=== PATIENT | female | born 1935 | race Two or more races ===

== ENCOUNTER 2020-02-17 17:53 | Inpatient (IN) | payer MEDICARE, MEDICAID ==
[~2020-02-17] VITALS: Ht 162.6 cm; Wt 91.8 kg
[2020-02-17] MEDS ORDERED: NITROGLYCERIN 0.4 MG SL TAB SL PRN (20:00)
[2020-02-17 21:05] LABS: Basophils # (auto) 0.2 10 ^3/uL (0-0.2); Eosinophils # (auto) 0.2 10 ^3/uL (0-0.8); Eosinophils % (auto) 1.1 % (0.0-7.0); Hematocrit 41.4 % (36.0-46.0); Hemoglobin 13.8 g/dL (12.2-16.2); Lymphocytes % (auto) 23.5 % (10.0-50.0); Mean Corpuscular Hemoglobin 30.5 pg (28.0-32.0); Mean Corpuscular Hgb Conc. 33.3 g/dL (32.0-36.0); Mean Corpuscular Volume 91.6 fL (80.0-100.0); Monocytes # (auto) 1.4 10 ^3/uL (0-1.3); Monocytes % (auto) 8.3 % (0.0-12.0); Neutrophils # (auto) 11.3 10 ^3/uL (1.6-8.6); Neutrophils % (auto) 66.1 % (37.0-80.0); Platelet Count (auto) 366 10^3/uL (140-450); Red Blood Cells 4.52 10^6/uL (4.0-5.20); Red Cell Distribution Width 16.1 % (11.8-14.3); White Blood Cell 17.1 10^3/uL (4.4-10.8)
[2020-02-17 21:22] LABS: Albumin 2.8 g/dL (3.4-5.0); Calcium 10.1 mg/dL (8.5-10.1); Potassium 3.6 mmol/L (3.5-5.1)
[2020-02-17 21:24] LABS: INR 1.02 (0.9-1.15); Partial Thromboplastin Time 24.6 sec (23.64-32.05)
[2020-02-17 21:26] LABS: BUN/Creatinine Ratio 30.3; Bilirubin, Total 0.5 mg/dL (0.2-1.0); Total Protein 8.4 g/dL (6.4-8.2)
[2020-02-18] MEDS ORDERED: NITROGLYCERIN 0.4 MG SL TAB SL PRN (07:15)
[2020-02-18] MEDS ORDERED: MILK OF MAGNESIA 30ML SUSP PO PRN (07:15)
[2020-02-18] MEDS ORDERED: HYDROcodone-ACET 5/325MG TAB PO PRN (07:15)
[2020-02-18] MEDS ORDERED: BISACODYL 10 MG RECT SUPP PR PRN (07:15)
[2020-02-18] MEDS: FLORASTOR (S. BOULARDII) 250 MG CAP PO SCH ×2 (10:00→22:00)
[2020-02-18] MEDS ORDERED: MEGESTROL ACET 400MG/10ML ORAL SUSP GT SCH (10:00)
[2020-02-18] MEDS: METOPROLOL TARTRATE 25 MG TAB PO SCH ×2 (10:00→22:00)
[2020-02-18] MEDS ORDERED: glyBURIDE 5 MG TAB PO SCH (10:00)
[2020-02-18] MEDS: MEGESTROL ACETATE 20 MG TAB PO SCH ×2 (10:00→22:00)
[2020-02-18] MEDS: CHOLECALCIFEROL (VITD3) 1,000UNIT=25mCg TAB PO SCH (10:30)
[2020-02-18] MEDS ORDERED: SOD CHL 0.9%/ KCL 20MEQ 1,000 ML IV SCH ×2 (10:45→11:00)
[2020-02-18 13:22] LABS: Urine Bacteria FEW /hpf (None Seen); Urine Blood Negative /uL (Negative); Urine Hyaline Cast FEW /lpf (0 - 2); Urine Mucus FEW (None Seen); Urine Specific Gravity 1.026 (1.001-1.035); Urine WBC 21 /hpf (0 - 5)
[2020-02-18] MEDS: FERROUS SULFATE 325 MG TAB PO SCH ×2 (14:23→22:00)
[2020-02-18] MEDS: hydrALAZINE HCL 25 MG TAB PO SCH ×2 (14:24→22:00)
[2020-02-18] MEDS: SODIUM CHLORIDE 0.9% 1,000 ML IV SCH (16:56)
[2020-02-18] MEDS: hydrALAZINE HCL 20 MG/ML VL IV PRN (17:37)
[2020-02-18] MEDS ORDERED: DEXTROSE (50%) 50ML SYRG IV PRN (17:45)
[2020-02-18] MEDS ORDERED: amLODIPine BESYLATE 5 MG TAB PO ONE (18:15)
[2020-02-18] MEDS: glyBURIDE 5 MG TAB PO SCH (18:28)
[2020-02-18] MEDS ORDERED: cefTRIAXone 1GM/50ML D5W 50 ML IV ONE (19:00)
[2020-02-18] MEDS: InsuLIN REG 1unit/0.01ml Soln (100units/ml) SC SCH (22:00)
[2020-02-18] MEDS: ATORVASTATIN 20 MG TAB PO SCH (22:00)
[2020-02-18] MEDS: ACCU-CHEK COMFORT CURVE STRIP VI SCH (22:08)
--- NOTE | 2020-02-18 22:45 | NUR ---
Telemetry admit from ER EDGARD ESTRADA admitted to Telemetry unit after SBAR received. Patient oriented to PAMELLA VILLARREAL RN primary RN, unit, room, bed, and unit policies regarding patient care and visiting hours. Patient now on continuous telemetry monitoring, tele box # 70 and telemetry reading on arrival to unit is ST 112. Patient placed on bedside oxygen, weighed by bedscale and encouraged to call if they need something. All questions and concerns addressed, patient verbalized understanding. Note:
[2020-02-18 23:00] VITALS: BP 147/109
[2020-02-19] MEDS ORDERED: MEGE40TA15 PO (04:35)
[2020-02-19] MEDS ORDERED: METO25TA5 PO (04:35)
[2020-02-19] MEDS ORDERED: CRAN450T PO (04:35)
[2020-02-19] MEDS ORDERED: GLYB1.257 PO (04:35)
[2020-02-19] MEDS ORDERED: COEN1CAP8 PO (04:35)
[2020-02-19] MEDS ORDERED: ALPR1TAB2 PO (04:35)
[2020-02-19] MEDS ORDERED: HYDR-4296 PO (04:35)
[2020-02-19] MEDS ORDERED: DOCU-94 PO (04:35)
[2020-02-19] MEDS ORDERED: AML5T PO (04:35)
[2020-02-19] MEDS ORDERED: ACET-1156 PO (04:35)
[2020-02-19] MEDS ORDERED: BISA10SU5 RE (04:35)
[2020-02-19] MEDS ORDERED: FERR-20 PO (04:35)
[2020-02-19] MEDS: FERROUS SULFATE 325 MG TAB PO SCH ×3 (04:59→21:02)
[2020-02-19] MEDS: hydrALAZINE HCL 25 MG TAB PO SCH ×3 (04:59→21:03)
[2020-02-19 05:00] VITALS: BP 163/67
[2020-02-19] MEDS: InsuLIN REG 1unit/0.01ml Soln (100units/ml) SC SCH ×4 (05:12→21:07)
[2020-02-19] MEDS: hydrALAZINE HCL 20 MG/ML VL IV PRN ×2 (05:12→17:54)
[2020-02-19] MEDS: ACCU-CHEK COMFORT CURVE STRIP VI SCH ×4 (05:12→21:09)
--- NOTE | 2020-02-19 07:30 | NUR ---
Opening Shift Note Assuming care of patient at this time. Patient is awake. Patient is aphasic and does not respond verbally to orientation questions. Patient sometimes says, "Yes" or "ok" but does not always respond at appropriate times. Bed is locked and lowered with side rails up x2. Instructed patient on the plan of care for today, however, patient does not respond or verbalize understanding. Call light within reach. Will continue to round hourly and as needed.
[2020-02-19] MEDS: glyBURIDE 5 MG TAB PO SCH ×2 (08:00→18:00)
[2020-02-19] MEDS: SODIUM CHLORIDE 0.9% 1,000 ML IV SCH ×3 (08:00→17:55)
[2020-02-19] MEDS ORDERED: MIDAZOLAM HCL 5 MG/ML-1ML VIAL ONE (08:25)
[2020-02-19] MEDS ORDERED: LIDOCAINE VISCOUS 2% 15ML UD ONE (08:25)
[2020-02-19] MEDS ORDERED: diphenhdrAMINE HCL 50 MG/1 ML VL ONE (08:25)
[2020-02-19] MEDS ORDERED: SODIUM CHLORIDE LOCK 0 ML ONE (08:25)
[2020-02-19] MEDS ORDERED: fentaNYL CITRATE 100 MCG/2 ML VL ONE (08:26)
[2020-02-19 09:00] VITALS: BP 123/71
--- NOTE | 2020-02-19 09:10 | NUR ---
Call to Son Call to son, Brandon, at this time. Brandon stated that the procedure was explained to him, "briefly." Brandon states that he would like procedure explained to him in detail and would also like to know exactly how much/type of anesthesia that patient would be receiving. Brandon states that, "she is slow to come out of anesthesia." Notified Brandon that this RN would hold off on signing consents for now until all questions and concerns are addressed. Brandon would like to speak with MD. Will notify MD and pre-op RN, Natalia.
[2020-02-19] MEDS: METOPROLOL TARTRATE 25 MG TAB PO SCH ×2 (10:00→21:06)
[2020-02-19] MEDS: amLODIPine BESYLATE 5 MG TAB PO SCH (10:00)
[2020-02-19] MEDS: MEGESTROL ACETATE 20 MG TAB PO SCH ×2 (10:00→21:07)
[2020-02-19] MEDS: cefTRIAXone 1GM/50ML D5W 50 ML IV SCH (10:00)
[2020-02-19] MEDS: FLORASTOR (S. BOULARDII) 250 MG CAP PO SCH ×2 (10:00→21:05)
[2020-02-19] MEDS: CHOLECALCIFEROL (VITD3) 1,000UNIT=25mCg TAB PO SCH (10:00)
--- NOTE | 2020-02-19 10:03 | NUR ---
WOUND CARE NOTE: Wound care in to see patient per wound care request regarding wounds that are noted present on admission. Bedside nurse took photograph of patient's wounds upon admission for reference. Patient is 84 years old female admitted for Dementia and need for GT placement. Patient is resting in bed in Rm. 274A. Patient is awake and aphasic. She's max assist in turning, repositioning and ADL's. Her Reginaldo score is 11. Skin/wound assessment done with the assistance of patient's nurse, SHELTON Myers. Noted patient has multiple Stage 3 pressure injuries to L sacrum (1x0.8cm) Proximal medial sacrum (0.8x0.5cm) and Distal medial sacrum (0.5x1cm). Sacral pressure injuries are full thickness with no measurable depth. Wounds are red with dark red j carlos wound, no drainage/odor noted. Cleansed patient's sacral wounds with mild soap and water,patted dry, applied Z Guard cream and overed wounds with Opti foam sacral dressing. Patient's left heel noted with 2x2cm intact DTI (Deep Tissue Injury) Wound is dark maroon, intact, soft and boggy to touch. Patient's Rt heel is intact with non-blanchable redness (Stage 1 pressure injury). Photograph of mentioned wounds are taken for reference. Patient tolerated, repositioned patient for comfort facing her L side, redistributed pressure points with pillows. RECOMMENDATION: Nursing to continue with BID/PRN cleaning and application of Z Guard cream to sacral wounds per MD order,Dietary consult, frequent turning and repositioning schedule as condition permits, redistribute pressure points with pillows,air mattress (ordered), frequent j carlos care/check, keep clean and dry,Donny foam boots to BLE, continue monitoring by wound care while patient is hospitalized. Addendum: 02/19/20 at 1502 by Vandana Dover RN Amended: Links added.
--- NOTE | 2020-02-19 10:23 | NUR ---
AIR MATTRESS: Air mattress ordered at [facility]. Reference #[id number]. Please call [facility] at if needed to follow up. Addendum: 02/19/20 at 1024 by Vandana Dover RN Amended: Links added.
--- NOTE | 2020-02-19 12:00 | NUR ---
Donny Boots Donny boots applied to patient at this time.
[2020-02-19 13:00] VITALS: BP 127/78
--- NOTE | 2020-02-19 13:00 | NUR ---
Call to Son Call to son regarding consents, Dr. Whiteside has explained procedure to son. No answer. Procedure planned for Monday. Consents will need to be signed before then.
--- NOTE | 2020-02-19 14:15 | NUR ---
Specialty Bed Patient is placed on specialty mattress at this time. Patient tolerated well. No distress noted.
[2020-02-19 17:00] VITALS: BP 152/81
--- NOTE | 2020-02-19 17:03 | NUR ---
Dr. De La Garza Left a message for Dr. De La Garza to notify that patient is positive for MRSA in the nares.
--- NOTE | 2020-02-19 19:24 | NUR ---
Closing Shift Note Report given. Will endorse care to the conference producer RN.
--- NOTE | 2020-02-19 19:30 | NUR ---
Opening Shift Note Assumed care of patient, awake but does not respond to questions. No S/S of distress/SOB or pain. will continue to monitor for changes Q1hr and PRN.
[2020-02-19] MEDS: ATORVASTATIN 20 MG TAB PO SCH (21:06)
[2020-02-19] MEDS: MUPIROCIN 2% OINT 15gm or 22gm EACHNOSTRI SCH (21:09)
[2020-02-19 22:00] VITALS: BP 131/75
[2020-02-20] MEDS: FERROUS SULFATE 325 MG TAB PO SCH ×3 (00:47→22:00)
[2020-02-20] MEDS: hydrALAZINE HCL 25 MG TAB PO SCH ×3 (00:47→22:00)
[2020-02-20] MEDS: SODIUM CHLORIDE 0.9% 1,000 ML IV SCH ×4 (04:06→23:08)
[2020-02-20 05:00] VITALS: BP 135/80
[2020-02-20] MEDS: ACCU-CHEK COMFORT CURVE STRIP VI SCH ×4 (06:50→22:00)
[2020-02-20] MEDS: InsuLIN REG 1unit/0.01ml Soln (100units/ml) SC SCH ×4 (06:51→22:00)
[2020-02-20] MEDS: glyBURIDE 5 MG TAB PO SCH ×2 (08:00→17:39)
[2020-02-20] MEDS: cefTRIAXone 1GM/50ML D5W 50 ML IV SCH (09:18)
[2020-02-20] MEDS: MUPIROCIN 2% OINT 15gm or 22gm EACHNOSTRI SCH ×2 (09:19→22:49)
[2020-02-20] MEDS: hydrALAZINE HCL 20 MG/ML VL IV PRN (09:20)
[2020-02-20] MEDS: FLORASTOR (S. BOULARDII) 250 MG CAP PO SCH ×2 (09:25→22:00)
[2020-02-20] MEDS: amLODIPine BESYLATE 5 MG TAB PO SCH (09:26)
[2020-02-20] MEDS: MEGESTROL ACETATE 20 MG TAB PO SCH ×2 (09:26→22:00)
[2020-02-20] MEDS: CHOLECALCIFEROL (VITD3) 1,000UNIT=25mCg TAB PO SCH (09:26)
[2020-02-20] MEDS: METOPROLOL TARTRATE 25 MG TAB PO SCH ×2 (09:26→22:00)
[2020-02-20 09:29] VITALS: BP 151/81
[2020-02-20 10:28] LABS: Basophils # (auto) 0.1 10 ^3/uL (0-0.2); Basophils % (auto) 0.8 % (0.0-2.0); Eosinophils # (auto) 0.2 10 ^3/uL (0-0.8); Eosinophils % (auto) 1.3 % (0.0-7.0); Hematocrit 37.6 % (36.0-46.0); Hemoglobin 12.2 g/dL (12.2-16.2); Lymphocytes # (auto) 3.4 10 ^3/uL (0.4-5.4); Lymphocytes % (auto) 20.2 % (10.0-50.0); Mean Corpuscular Hemoglobin 30.1 pg (28.0-32.0); Mean Corpuscular Hgb Conc. 32.5 g/dL (32.0-36.0); Mean Corpuscular Volume 92.6 fL (80.0-100.0); Monocytes # (auto) 1.2 10 ^3/uL (0-1.3); Monocytes % (auto) 7.3 % (0.0-12.0); Neutrophils % (auto) 70.4 % (37.0-80.0); Nucleated Red Blood Cells % 0.1 %; Platelet Count (auto) 354 10^3/uL (140-450); Red Blood Cells 4.06 10^6/uL (4.0-5.20); Red Cell Distribution Width 16.1 % (11.8-14.3)
[2020-02-20 11:02] LABS: Albumin 2.2 g/dL (3.4-5.0); Calcium 8.5 mg/dL (8.5-10.1)
[2020-02-20 11:05] LABS: Bilirubin, Total 0.7 mg/dL (0.2-1.0); Total Protein 6.7 g/dL (6.4-8.2)
[2020-02-20 11:29] LABS: Potassium 2.8 mmol/L (3.5-5.1)
--- NOTE | 2020-02-20 11:48 | NUR ---
Critical Potassium Left message for Dr. De La Garza regarding critical potassium. Awaiting response.
--- NOTE | 2020-02-20 12:24 | NUR ---
Consult Consider Glucerna 1.2 @ 55ml/hr and MVI + Vitamin C 500mg BID for wound healing Est energy needs 9454-6198 kcal (30-35 kcal/kg BW 51.6kg) Est protein needs 52-67g (1-1.3g/kg BW 51.6kg) Will reassess prn. Addendum: 02/20/20 at [address] Amended: Links added.
[2020-02-20] MEDS ORDERED: POTASSIUM CHL 20MEQ/100ML 100 ML IV ONE ×3 (13:00→20:00)
--- NOTE | 2020-02-20 13:50 | NUR ---
Assessment Cleaning Team Member spoke with pt's son Brandon [phone] per initial assessment. Pt is a 84 yr old female admitted for dysphagia. She has a hx of dementia, dm, htn. Pt had a hip fx in Sep 2019 and has been at [facility] since. Pt previously ambulated with a walker but is max assist with adl's since her hip fx. Pt has a walker at [facility]. Pt's spouse Edith has CD for pt. Spouse and son Brandon give medical consents. Pt's pcp is Dr. Monet. Family agrees for pt to return to [facility] once medically cleared. Ss to continue monitoring pt for dc needs. Addendum: 02/20/20 at 1354 by CHER FISHMAN SS Amended: Links added.
[2020-02-20 14:39] VITALS: BP 124/54
[2020-02-20 16:57] VITALS: BP 136/76
--- NOTE | 2020-02-20 19:35 | NUR ---
RECEIVED PATIENT FROM DAY SHIFT RN. PATIENT RESTING IN BED AND AWAKE, NO S/S OF DISTRESS NOTED. PATIENT IS APHASIC AND NO VERBAL RESPONSE TO QUESTIONS. PATIENT DID SHAKE HER HEAD TO ANSWER NO PAIN. AND SAID YES TO ANSWER SHE IS IN HOSPITAL. BUT NOT ALWAYS RESPOND AT APPROPRIATE TIME. REPOSITIONED PATIENT TO COMFORT. PATIENT TOLERATED WELL. POC INSTRUCTED AND ENCOURAGED PATIENT TO CALL FOR COMMERCIAL FISHING VESSEL OPERATOR IF NEEDED. BED LOCKED IN LOWEST POSITION WITH SIDE RAILS UP X 2. CALL HEALY WITHIN REACH. ALARM ON. CONTINUE TO MONITOR FOR CHANGES Q1H AND PRN.
--- NOTE | 2020-02-20 21:20 | NUR ---
REPOSITIONED PATIENT. PATIENT TOLERATED WELL. CONTINUE CARE
[2020-02-20] MEDS: ATORVASTATIN 20 MG TAB PO SCH (22:00)
[2020-02-20 22:02] VITALS: BP 133/60
--- NOTE | 2020-02-20 22:04 | NUR ---
ACCU-CHECK, BS 112. NO COVERAGE. CONTINUE TO MONITOR.
--- NOTE | 2020-02-20 23:49 | NUR ---
REPOSITIONED PATIENT. PATIENT TOLERATED WELL. CONTINUE CARE
--- NOTE | 2020-02-21 01:49 | NUR ---
PATIENT SLEEPING. NO S/S OF DISTRESS NOTED. FLORES CATH IN PLACE DRAINING TO GRAVITY. REPOSITIONED PATIENT. PATIENT TOLERATED WELL. CONTINUE CARE
--- NOTE | 2020-02-21 03:51 | NUR ---
PATIENT HAD BM. CLEANED PATIENT. PARTIAL LINEN CHANGED. PATIENT TOLERATED WELL. NO S/S OF DISTRESS NOTED. CONTINUE TO MONITOR.
[2020-02-21 05:30] VITALS: BP 145/83
--- NOTE | 2020-02-21 05:40 | NUR ---
REPOSITIONED PATIENT. PATIENT TOLERATED WELL. SPECIAL MATTRESS BED IN LOWEST POSITION. CONTINUE CARE
[2020-02-21] MEDS: hydrALAZINE HCL 25 MG TAB PO SCH ×3 (06:00→22:00)
[2020-02-21] MEDS: FERROUS SULFATE 325 MG TAB PO SCH ×3 (06:00→22:00)
[2020-02-21] MEDS: ACCU-CHEK COMFORT CURVE STRIP VI SCH ×4 (06:19→22:06)
[2020-02-21] MEDS: InsuLIN REG 1unit/0.01ml Soln (100units/ml) SC SCH ×4 (06:19→22:00)
--- NOTE | 2020-02-21 06:20 | NUR ---
ACCU-CHECK, BS 127. NO COVERAGE. CONTINUE TO MONITOR.
--- NOTE | 2020-02-21 07:52 | NUR ---
SPOKE WITH PATIENTS SON HENRIK ESTRADA REGARDING CONSENT FOR EGD AND PEG PLACEMENT WITH DR. AGUIRRE TODAY. PATIENTS SON AGREED TO THE PROCEDURE FOR HIS MOM ALONG WITH THE CONSENT FOR BLOOD TRANSFUSION IN CASE OF EMERGENCY. THE SON ALSO SPOKE WITH EDGAR GUY RN FOR A 2 NURSE VERIFICATION.SON STATES HIS MOM IS A DNR AT [facility] SO I CALLED AND SPOKE TO PAGE AT [facility]. SHE STATED SHE WILL FAX IT OVER TO ME. PAGE CALLED BACK AND STATED THAT MEDICAL RECORDS LET HER KNOW THAT THE PATIENT AT THE FACILITY IS NOT A DNR BUT IN FACT A FULL CODE.
[2020-02-21] MEDS ORDERED: SODIUM CHLORIDE LOCK 10 ML ONE (08:00)
[2020-02-21] MEDS: glyBURIDE 5 MG TAB PO SCH ×2 (08:00→17:13)
[2020-02-21] MEDS ORDERED: diphenhdrAMINE HCL 50 MG/1 ML VL ONE (08:00)
[2020-02-21] MEDS ORDERED: LIDOCAINE VISCOUS 2% 15ML UD ONE (08:00)
[2020-02-21] MEDS ORDERED: NALOXONE HCL 0.4 MG/ML VIAL ONE (08:09)
[2020-02-21] MEDS ORDERED: FLUMAZENIL 0.1 MG/ML INJ 10ML MDV IV ONE (08:09)
[2020-02-21 08:30] VITALS: BP 158/85
[2020-02-21 08:31] LABS: Basophils # (auto) 0.1 10 ^3/uL (0-0.2); Basophils % (auto) 0.7 % (0.0-2.0); Eosinophils # (auto) 0.5 10 ^3/uL (0-0.8); Hematocrit 34.9 % (36.0-46.0); Hemoglobin 11.3 g/dL (12.2-16.2); Lymphocytes # (auto) 3.2 10 ^3/uL (0.4-5.4); Lymphocytes % (auto) 20.3 % (10.0-50.0); Mean Corpuscular Hgb Conc. 32.3 g/dL (32.0-36.0); Mean Corpuscular Volume 92.8 fL (80.0-100.0); Monocytes # (auto) 1.1 10 ^3/uL (0-1.3); Monocytes % (auto) 6.9 % (0.0-12.0); Neutrophils # (auto) 10.8 10 ^3/uL (1.6-8.6); Neutrophils % (auto) 69.1 % (37.0-80.0); Platelet Count (auto) 317 10^3/uL (140-450); Red Blood Cells 3.76 10^6/uL (4.0-5.20); Red Cell Distribution Width 16.6 % (11.8-14.3); White Blood Cell 15.7 10^3/uL (4.4-10.8)
--- NOTE | 2020-02-21 08:31 | NUR ---
TOOK PATIENT DOWN TO PRE OP WITH SORAIDA RODRIGUEZ. FROILAN PEOPLES TOOK OVER CARE.
[2020-02-21] MEDS ORDERED: ceFAZolin 1GM/50ML 50 ML IV ONE (08:32)
[2020-02-21] MEDS: SODIUM CHLORIDE 0.9% 1,000 ML IV SCH ×2 (08:43→16:55)
[2020-02-21 08:50] LABS: Calcium 8.2 mg/dL (8.5-10.1); Potassium 3.2 mmol/L (3.5-5.1)
[2020-02-21 08:52] LABS: BUN/Creatinine Ratio 15.2; Bilirubin, Total 0.6 mg/dL (0.2-1.0); Total Protein 6.3 g/dL (6.4-8.2)
--- NOTE | 2020-02-21 09:08 | NUR ---
AT THE REQUEST OF PATIENTS SON HENRIK ESTRADA, I CALLED DR. RUSS TO REQUEST A DNR. DR. RUSS GAVE THE ORDER TO BE STARTED AFTER PATIENT IS OUT OF THE EGD WITH PEG TUBE PLACEMENT. CATHY BLACKMON RN VERIFIED THE TELEPHONE ORDER OVER THE PHONE WITH DR. RUSS ALSO. CALLED AND NOTIFIED DELORES CHESTER.
[2020-02-21] MEDS: fentaNYL CITRATE 100 MCG/2 ML VL ONE ×2 (09:11→09:14)
[2020-02-21] MEDS: MIDAZOLAM HCL 5 MG/ML-1ML VIAL ONE ×2 (09:11→09:14)
--- NOTE | 2020-02-21 09:37 | NUR ---
RECEIVED REPORT FROM CRUSHED STONE GRADERSHELTON POLLOCK
[2020-02-21] MEDS: FLORASTOR (S. BOULARDII) 250 MG CAP PO SCH ×2 (10:00→22:00)
[2020-02-21] MEDS: METOPROLOL TARTRATE 25 MG TAB PO SCH ×2 (10:00→22:00)
[2020-02-21] MEDS: PANTOPRAZOLE 40 MG/10 ML VIAL INJ IV SCH ×2 (10:00→22:05)
[2020-02-21] MEDS: MEGESTROL ACETATE 20 MG TAB PO SCH ×2 (10:00→22:00)
--- NOTE | 2020-02-21 10:00 | NUR ---
PATIENT BROUGHT BACK UP TO ROOM BY PACU NURSE PHILL PEOPLES, VITALS WNL. PATIENT IS RESTING WITH OUT ANY SIGNS OF DISTRESS.
[2020-02-21 10:09] VITALS: BP 135/62
[2020-02-21] MEDS: cefTRIAXone 1GM/50ML D5W 50 ML IV SCH (10:17)
[2020-02-21] MEDS: MUPIROCIN 2% OINT 15gm or 22gm EACHNOSTRI SCH ×2 (10:17→22:05)
[2020-02-21] MEDS: amLODIPine BESYLATE 5 MG TAB PO SCH (10:28)
[2020-02-21] MEDS: CHOLECALCIFEROL (VITD3) 1,000UNIT=25mCg TAB PO SCH (10:28)
--- NOTE | 2020-02-21 10:28 | NUR ---
PATIENT IS DYSAPHIC SO 1000 MEDICATIONS HELD. UNABLE TO USE NEW PEG TUBE FOR [address] RUSS SIGNED DNR.
--- NOTE | 2020-02-21 10:39 | NUR ---
DR. Leanna RUSS AT BEDSIDE WITH PATIENT, ORDERS RECEIVED, WILL DOCUMENT AND CARRY OUT
--- NOTE | 2020-02-21 12:25 | NUR ---
re-assessment Per consult dc planning for SNF on Monday. Patient previously at [facility]. order sent to [facility]. Per Alena at [facility] patient has been accepted back to [facility]. Per Alena she will assign room on discharge. If discharged over the weekend call [phone] for report, room and transport. Addendum: 02/21/20 at 1228 by Lissy Frazier Amended: Links added.
[2020-02-21 12:30] VITALS: BP 144/92
[2020-02-21 16:25] VITALS: BP 147/106
[2020-02-21] MEDS: POTASSIUM CHL 20MEQ/100ML 100 ML IV SCH ×3 (18:08→22:04)
--- NOTE | 2020-02-21 19:52 | NUR ---
RECEIVED PATIENT FROM DAY SHIFT RN. PATIENT RESTING IN BED AND AWAKE, NO S/S OF DISTRESS NOTED. PATIENT IS APHASIC AND NO VERBAL RESPONSE TO QUESTIONS. PATIENT DID SHAKE HER HEAD TO ANSWER NO PAIN. AND SAID YES TO ANSWER SHE IS IN HOSPITAL. BUT NOT ALWAYS RESPOND AT APPROPRIATE TIME. REPOSITIONED PATIENT TO COMFORT. PATIENT TOLERATED WELL. FLORES CATH IN PLACE DRAINING TO GRAVITY. POC INSTRUCTED AND ENCOURAGED PATIENT TO CALL FOR HEEL SEAT LASTER IF NEEDED. SPECIAL MATTRESS BED LOCKED IN LOWEST POSITION WITH SIDE RAILS UP X 2. CALL HEALY WITHIN REACH. ALARM ON. CONTINUE TO MONITOR FOR CHANGES Q1H AND PRN.
--- NOTE | 2020-02-21 21:25 | NUR ---
REPOSITIONED PATIENT. PATIENT TOLERATED WELL. CONTINUE CARE
[2020-02-21 22:00] VITALS: BP 142/95
[2020-02-21] MEDS: ATORVASTATIN 20 MG TAB PO SCH (22:00)
--- NOTE | 2020-02-21 22:17 | NUR ---
ACCU-CHECK, BS 106. NO COVERAGE. CONTINUE TO MONITOR.
--- NOTE | 2020-02-21 23:01 | NUR ---
REPORT GIVEN TO NATHAN PEOPLES. ALL QUESTIONS AND CONCERNS ADDRESSED.
--- NOTE | 2020-02-21 23:07 | NUR ---
2300 ASSUMED CARE OF PATIENT++
[2020-02-22] VITALS (7 sets, daily range): BP systolic 134–161; BP diastolic 65–84
[2020-02-22] MEDS: SODIUM CHLORIDE 0.9% 1,000 ML IV SCH ×3 (00:22→18:00)
--- NOTE | 2020-02-22 04:00 | NUR ---
PATIENT TURNED AND REPOSITIONED. FINGERSTICK BLOOD SUGAR CHECKED 110 VITAL SIGNS CHECKED AND DOCUMENTED:BP 150/65, HR 107, O2 SAT 99% ON 2L O2 BY NASAL CANULA. RR 20, TEMP 98.8.
[2020-02-22] MEDS: hydrALAZINE HCL 25 MG TAB PO SCH ×3 (06:00→22:20)
[2020-02-22] MEDS: FERROUS SULFATE 325 MG TAB PO SCH ×3 (06:00→22:00)
[2020-02-22] MEDS: ACCU-CHEK COMFORT CURVE STRIP VI SCH ×4 (06:43→22:20)
[2020-02-22] MEDS: InsuLIN REG 1unit/0.01ml Soln (100units/ml) SC SCH ×4 (06:44→22:00)
--- NOTE | 2020-02-22 06:44 | NUR ---
PATIENT SEEN AND REPOSITIONED. SLEPT ALL NIGHT. NEWLY PLACED PEG TUBE IN PLACE. NOT TO BE USED BEOFRE 1100 TODAY.
[2020-02-22 07:00] LABS: Basophils # (auto) 0.1 10 ^3/uL (0-0.2); Basophils % (auto) 0.3 % (0.0-2.0); Eosinophils # (auto) 0.4 10 ^3/uL (0-0.8); Eosinophils % (auto) 2.7 % (0.0-7.0); Hematocrit 35.2 % (36.0-46.0); Hemoglobin 11.5 g/dL (12.2-16.2); Lymphocytes # (auto) 2.4 10 ^3/uL (0.4-5.4); Lymphocytes % (auto) 15.7 % (10.0-50.0); Mean Corpuscular Hemoglobin 30.3 pg (28.0-32.0); Mean Corpuscular Hgb Conc. 32.7 g/dL (32.0-36.0); Mean Corpuscular Volume 92.7 fL (80.0-100.0); Monocytes % (auto) 6.7 % (0.0-12.0); Neutrophils # (auto) 11.6 10 ^3/uL (1.6-8.6); Neutrophils % (auto) 74.6 % (37.0-80.0); Nucleated Red Blood Cells % 0.1 %; Platelet Count (auto) 301 10^3/uL (140-450); Red Blood Cells 3.79 10^6/uL (4.0-5.20); Red Cell Distribution Width 15.9 % (11.8-14.3); White Blood Cell 15.5 10^3/uL (4.4-10.8)
[2020-02-22 07:24] LABS: Calcium 8.3 mg/dL (8.5-10.1); Potassium 3.7 mmol/L (3.5-5.1)
[2020-02-22 07:27] LABS: BUN/Creatinine Ratio 12.5
[2020-02-22 07:30] LABS: Bilirubin, Total 0.6 mg/dL (0.2-1.0); Total Protein 6.2 g/dL (6.4-8.2)
--- NOTE | 2020-02-22 07:40 | NUR ---
Opening Shift Note Assumed care of patient, asleep, no S/S of distress/SOB or pain. Will continue to monitor for changes Q1hr and PRN. Bed locked in lowest position with two side rails up and call light in reach.
[2020-02-22] MEDS: glyBURIDE 5 MG TAB PO SCH ×2 (08:00→18:00)
[2020-02-22] MEDS: PANTOPRAZOLE 40 MG/10 ML VIAL INJ IV SCH ×2 (09:44→22:18)
[2020-02-22] MEDS: FLORASTOR (S. BOULARDII) 250 MG CAP PO SCH ×2 (09:44→22:00)
[2020-02-22] MEDS: MUPIROCIN 2% OINT 15gm or 22gm EACHNOSTRI SCH ×2 (09:44→22:18)
[2020-02-22] MEDS: cefTRIAXone 1GM/50ML D5W 50 ML IV SCH (09:44)
[2020-02-22] MEDS: MEGESTROL ACETATE 20 MG TAB PO SCH ×2 (09:45→22:00)
[2020-02-22] MEDS: METOPROLOL TARTRATE 25 MG TAB PO SCH ×3 (10:00→22:19)
[2020-02-22] MEDS: CHOLECALCIFEROL (VITD3) 1,000UNIT=25mCg TAB PO SCH (10:00)
[2020-02-22] MEDS: amLODIPine BESYLATE 5 MG TAB PO SCH (10:00)
--- NOTE | 2020-02-22 10:04 | NUR ---
DR AGUIRRE ROUNDING PER DR AGUIRRE ITS OK TO USE PEG TUBE AND XARELTO MAY RESUME TOMORROW 02/23/20
--- NOTE | 2020-02-22 13:35 | NUR ---
DR PANTOJA ROUNDING NEW ORDERS RECEIVED WILL IMPLEMENT.
--- NOTE | 2020-02-22 14:34 | NUR ---
Nutrition Consult/ Followup Notes Wt: 60.8 kg Pt was sleeping with no family by bedside. per records pt unable to swallow PO and hence NPO. pt might strt PN support. no order of PN yet Est energy needs 8679-4415 kcal (30-35 kcal/kg BW 51.6kg) Est protein needs 52-67g (1-1.3g/kg BW 51.6kg) Will reassess prn. LABS: GLU 110 H, CA 8.3 L, ALB 2.0 L. GI: Pt has no BM reported per RN doc BS: 10 high risk Refer to wound assessment report for full details. PES: Increased protein needs aeb increased protein needs for wound healing r/t BS 10, multible pressure ulcers per prompt care rn note Comments 1) Continue to monitor g-tube placement, labs, skin 2) Continue current plan of care. 3) Consider Glucerna 1.2 @ 55 ml/hr and MVI + Vitamin C 500mg BID for wound healing F/u high 2-3 days
[2020-02-22] MEDS: ATORVASTATIN 20 MG TAB PO SCH (22:20)
[2020-02-23 05:42] VITALS: BP 152/77
[2020-02-23] MEDS: FERROUS SULFATE 325 MG TAB PO SCH ×3 (05:54→22:00)
[2020-02-23] MEDS: InsuLIN REG 1unit/0.01ml Soln (100units/ml) SC SCH ×4 (06:48→22:00)
[2020-02-23] MEDS: ACCU-CHEK COMFORT CURVE STRIP VI SCH ×4 (06:48→22:08)
[2020-02-23] MEDS: hydrALAZINE HCL 25 MG TAB PO SCH ×3 (06:48→22:06)
[2020-02-23 06:55] LABS: Basophils # (auto) 0.1 10 ^3/uL (0-0.2); Basophils % (auto) 0.5 % (0.0-2.0); Eosinophils # (auto) 0.4 10 ^3/uL (0-0.8); Eosinophils % (auto) 2.3 % (0.0-7.0); Hemoglobin 11.4 g/dL (12.2-16.2); Lymphocytes # (auto) 3.1 10 ^3/uL (0.4-5.4); Lymphocytes % (auto) 18.3 % (10.0-50.0); Mean Corpuscular Hemoglobin 29.9 pg (28.0-32.0); Mean Corpuscular Hgb Conc. 31.7 g/dL (32.0-36.0); Mean Corpuscular Volume 94.2 fL (80.0-100.0); Monocytes # (auto) 1.2 10 ^3/uL (0-1.3); Monocytes % (auto) 7.2 % (0.0-12.0); Neutrophils # (auto) 12.3 10 ^3/uL (1.6-8.6); Neutrophils % (auto) 71.7 % (37.0-80.0); Platelet Count (auto) 296 10^3/uL (140-450); Red Blood Cells 3.82 10^6/uL (4.0-5.20); Red Cell Distribution Width 15.6 % (11.8-14.3); White Blood Cell 17.1 10^3/uL (4.4-10.8)
--- NOTE | 2020-02-23 07:10 | NUR ---
End of Shift Note Endorsed care to dayshift RN. At this time patient has no s/s of distress or SOB, no complaints.
--- NOTE | 2020-02-23 07:20 | NUR ---
Opening Shift Note Assumed care of patient, who is alseep. No S/S of distress/SOB or pain. Will continue to monitor for changes Q1hr and PRN. Bed locked in lowest position with two side rails up and call light in reach.
[2020-02-23 07:21] LABS: Albumin 1.9 g/dL (3.4-5.0); Calcium 8.2 mg/dL (8.5-10.1); Potassium 3.1 mmol/L (3.5-5.1)
[2020-02-23 07:26] LABS: BUN/Creatinine Ratio 11.3; Bilirubin, Total 0.6 mg/dL (0.2-1.0); Total Protein 6.1 g/dL (6.4-8.2)
[2020-02-23 08:00] VITALS: BP 132/75
[2020-02-23] MEDS: glyBURIDE 5 MG TAB PO SCH ×2 (08:00→16:29)
[2020-02-23] MEDS: SODIUM CHLORIDE 0.9% 1,000 ML IV SCH ×4 (08:00→23:50)
[2020-02-23 09:00] VITALS: BP 132/75
[2020-02-23] MEDS: PANTOPRAZOLE 40 MG/10 ML VIAL INJ IV SCH ×2 (09:02→22:05)
[2020-02-23] MEDS: cefTRIAXone 1GM/50ML D5W 50 ML IV SCH (09:02)
[2020-02-23] MEDS: MUPIROCIN 2% OINT 15gm or 22gm EACHNOSTRI SCH ×2 (09:02→22:06)
[2020-02-23] MEDS: FLORASTOR (S. BOULARDII) 250 MG CAP PO SCH ×2 (09:02→22:00)
[2020-02-23] MEDS: amLODIPine BESYLATE 5 MG TAB PO SCH (09:19)
[2020-02-23] MEDS: METOPROLOL TARTRATE 25 MG TAB PO SCH ×2 (09:19→22:07)
[2020-02-23] MEDS: CHOLECALCIFEROL (VITD3) 1,000UNIT=25mCg TAB PO SCH (09:20)
[2020-02-23] MEDS: MEGESTROL ACETATE 20 MG TAB PO SCH ×2 (09:20→22:00)
[2020-02-23 13:00] VITALS: BP 132/73
[2020-02-23 17:00] VITALS: BP 122/76
[2020-02-23] MEDS: RIVAROXABAN 15 MG TAB PO SCH (18:45)
[2020-02-23 22:00] VITALS: BP 151/95
[2020-02-23] MEDS: ATORVASTATIN 20 MG TAB PO SCH (22:07)
[2020-02-24 05:00] VITALS: BP 136/58
[2020-02-24] MEDS: FERROUS SULFATE 325 MG TAB PO SCH ×3 (05:18→22:32)
[2020-02-24] MEDS: hydrALAZINE HCL 25 MG TAB PO SCH ×3 (05:19→22:33)
[2020-02-24 06:04] LABS: Basophils # (auto) 0.1 10 ^3/uL (0-0.2); Basophils % (auto) 0.7 % (0.0-2.0); Eosinophils # (auto) 0.3 10 ^3/uL (0-0.8); Eosinophils % (auto) 2.2 % (0.0-7.0); Hemoglobin 11.1 g/dL (12.2-16.2); Lymphocytes # (auto) 2.6 10 ^3/uL (0.4-5.4); Lymphocytes % (auto) 18.8 % (10.0-50.0); Mean Corpuscular Hgb Conc. 32.6 g/dL (32.0-36.0); Mean Corpuscular Volume 92.2 fL (80.0-100.0); Monocytes # (auto) 1.1 10 ^3/uL (0-1.3); Monocytes % (auto) 7.7 % (0.0-12.0); Neutrophils # (auto) 9.9 10 ^3/uL (1.6-8.6); Neutrophils % (auto) 70.6 % (37.0-80.0); Nucleated Red Blood Cells % 0.1 %; Platelet Count (auto) 353 10^3/uL (140-450); Red Blood Cells 3.68 10^6/uL (4.0-5.20); Red Cell Distribution Width 15.1 % (11.8-14.3)
[2020-02-24 06:29] LABS: Calcium 8.2 mg/dL (8.5-10.1)
[2020-02-24 06:34] LABS: Albumin 1.9 g/dL (3.4-5.0); BUN/Creatinine Ratio 9.1; Bilirubin, Total 0.4 mg/dL (0.2-1.0)
[2020-02-24] MEDS: InsuLIN REG 1unit/0.01ml Soln (100units/ml) SC SCH ×4 (06:54→22:37)
[2020-02-24] MEDS: ACCU-CHEK COMFORT CURVE STRIP VI SCH ×4 (06:54→22:35)
--- NOTE | 2020-02-24 07:15 | NUR ---
End of Shift Note Endorsed care to dayshift RN. At this time patient has no s/s of distress or SOB. Respirations are even and unlabored, patient awakens to touch and name.
--- NOTE | 2020-02-24 07:15 | NUR ---
RECEIVED PATIENT FROM DAY SHIFT RN. PATIENT RESTING IN BED AND AWAKE, NO S/S OF DISTRESS NOTED. PATIENT IS APHASIC AND NO VERBAL RESPONSE TO QUESTIONS. PATIENT DID SHAKE HER HEAD TO ANSWER NO PAIN. AND SAID YES TO ANSWER SHE IS IN HOSPITAL. REPOSITIONED PATIENT TO COMFORT. PATIENT TOLERATED WELL. FLORES CATH IN PLACE DRAINING TO GRAVITY. POC INSTRUCTED AND ENCOURAGED PATIENT TO CALL FOR PUBLIC ADDRESS SERVICER IF NEEDED. SPECIAL MATTRESS BED LOCKED IN LOWEST POSITION WITH SIDE RAILS UP X 2. CALL HEALY WITHIN REACH. ALARM ON. CONTINUE TO MONITOR FOR CHANGES Q1H AND PRN.
[2020-02-24] MEDS: glyBURIDE 5 MG TAB PO SCH ×2 (08:00→18:00)
[2020-02-24] MEDS: SODIUM CHLORIDE 0.9% 1,000 ML IV SCH ×2 (08:00→16:00)
[2020-02-24 09:00] VITALS: BP 127/56
[2020-02-24] MEDS: cefTRIAXone 1GM/50ML D5W 50 ML IV SCH (09:00)
[2020-02-24] MEDS: MEGESTROL ACETATE 20 MG TAB PO SCH ×2 (10:00→22:32)
[2020-02-24] MEDS: PANTOPRAZOLE 40 MG/10 ML VIAL INJ IV SCH ×2 (10:10→22:30)
[2020-02-24] MEDS: METOPROLOL TARTRATE 25 MG TAB PO SCH ×2 (10:12→22:33)
[2020-02-24] MEDS: CHOLECALCIFEROL (VITD3) 1,000UNIT=25mCg TAB PO SCH (10:12)
[2020-02-24] MEDS: FLORASTOR (S. BOULARDII) 250 MG CAP PO SCH ×2 (10:12→22:38)
[2020-02-24] MEDS: amLODIPine BESYLATE 5 MG TAB PO SCH (10:13)
[2020-02-24] MEDS: MUPIROCIN 2% OINT 15gm or 22gm EACHNOSTRI SCH (10:27)
[2020-02-24 13:00] VITALS: BP 114/86
[2020-02-24] MEDS ORDERED: Jevity 1.2 Cal/Fiber 1 Liter GT SCH (14:30)
--- NOTE | 2020-02-24 15:04 | NUR ---
Nutrition Consult/ Followup Notes Wt: 61.8 kg Pt is s/p PEG tube placement. Pt with Jevity 1.2 at 30 ml/hr order per MD. Consider changing TF order to Glucerna 1.2 d/t to pt past medical hx of DM, if pt to stay on Jevity 1.2 per MD order change to Osmolite 1.2 d/t nationwide shortage of Jevity 1.2. Est energy needs 8754-5064 kcal (30-35 kcal/kg BW 51.6kg) Est protein needs 52-67g (1-1.3g/kg BW 51.6kg) Will reassess prn. LABS: BUN 6L, Alb 1.9L, Ca 8.2L GI: Pt had 2 BMs reported 02/23 per RN doc BS: 10 high risk Refer to wound assessment report for full details. PES: Increased protein needs aeb increased protein needs for wound healing r/t BS 10, multiple pressure ulcers per career development facilitator note Comments 1) Consider Glucerna 1.2 @ 55 ml/hr and MVI + Vitamin C 500mg BID for wound healing Monitor labs, skin F/u high 2-3 days
[2020-02-24 17:00] VITALS: BP 112/74
--- NOTE | 2020-02-24 17:00 | NUR ---
DRESSING CHANGE REMOVED OLD DRESSING FROM SACRUM, CLEANSED WITH WARM SOAP AND WATER. APPLIED NEW OPTIFOAM, PATIENT TOLERATED WELL.
--- NOTE | 2020-02-24 17:30 | NUR ---
Pt with Jevity 1.2 at 30 ml/hr order per MD.
[2020-02-24] MEDS: RIVAROXABAN 15 MG TAB PO SCH (18:00)
--- NOTE | 2020-02-24 19:20 | NUR ---
Opening Shift Note Assumed care of patient. No S/S of distress/SOB or pain. Will continue to monitor for changes Q1hr and PRN. Bed locked in lowest position with two side rails up and call light in reach.
[2020-02-24 22:00] VITALS: BP 143/62
[2020-02-24] MEDS: ATORVASTATIN 20 MG TAB PO SCH (22:32)
[2020-02-25] MEDS: SODIUM CHLORIDE 0.9% 1,000 ML IV SCH ×3 (00:53→15:54)
[2020-02-25 05:00] VITALS: BP 132/56
[2020-02-25 06:00] LABS: Basophils # (auto) 0.1 10 ^3/uL (0-0.2); Basophils % (auto) 0.5 % (0.0-2.0); Eosinophils # (auto) 0.3 10 ^3/uL (0-0.8); Eosinophils % (auto) 2.2 % (0.0-7.0); Hematocrit 35.6 % (36.0-46.0); Hemoglobin 11.8 g/dL (12.2-16.2); Lymphocytes # (auto) 3.5 10 ^3/uL (0.4-5.4); Lymphocytes % (auto) 24.1 % (10.0-50.0); Mean Corpuscular Hemoglobin 30.3 pg (28.0-32.0); Mean Corpuscular Hgb Conc. 33.1 g/dL (32.0-36.0); Mean Corpuscular Volume 91.6 fL (80.0-100.0); Monocytes # (auto) 1.1 10 ^3/uL (0-1.3); Monocytes % (auto) 7.6 % (0.0-12.0); Neutrophils # (auto) 9.6 10 ^3/uL (1.6-8.6); Neutrophils % (auto) 65.6 % (37.0-80.0); Platelet Count (auto) 351 10^3/uL (140-450); Red Blood Cells 3.89 10^6/uL (4.0-5.20); Red Cell Distribution Width 15.1 % (11.8-14.3); White Blood Cell 14.7 10^3/uL (4.4-10.8)
[2020-02-25 06:12] LABS: Albumin 1.9 g/dL (3.4-5.0); BUN/Creatinine Ratio 7.7
[2020-02-25 06:15] LABS: Bilirubin, Total 0.3 mg/dL (0.2-1.0)
[2020-02-25 06:17] LABS: Potassium 2.8 mmol/L (3.5-5.1)
--- NOTE | 2020-02-25 06:24 | NUR ---
Called/paged called re critical lab value potassium 2.8 Waiting for call back. Continue care.
[2020-02-25] MEDS: FERROUS SULFATE 325 MG TAB PO SCH (06:34)
[2020-02-25] MEDS: hydrALAZINE HCL 25 MG TAB PO SCH ×3 (06:34→22:00)
[2020-02-25] MEDS: ACCU-CHEK COMFORT CURVE STRIP VI SCH ×4 (06:34→22:00)
[2020-02-25] MEDS: InsuLIN REG 1unit/0.01ml Soln (100units/ml) SC SCH ×4 (06:42→22:00)
--- NOTE | 2020-02-25 07:20 | NUR ---
Opening Shift Note Assumed care of patient, verbally awake and alert a/ox1. No S/S of distress/SOB or pain. Insructed on POC and to callfor assist PRN, will continue to monitor for changes Q1hr and PRN.
[2020-02-25] MEDS: glyBURIDE 5 MG TAB PO SCH ×2 (08:00→17:18)
[2020-02-25 09:00] VITALS: BP 135/63
--- NOTE | 2020-02-25 09:00 | NUR ---
CALLED PHARMACY [facility] NEEDS TO BE LIQUID FORM NOT TABLET
--- NOTE | 2020-02-25 09:10 | NUR ---
pt son called updated on plan of care
[2020-02-25] MEDS ORDERED: POTASSIUM EFFERVESENT TAB 25 MEQ GT ONE (09:30)
[2020-02-25] MEDS ORDERED: POTASSIUM CHL 20MEQ/100ML 100 ML IV ONE (09:30)
--- NOTE | 2020-02-25 09:47 | NUR ---
MD RUSS ROUNDED ON PT PLAN FOR DISCHARGE TMORROW
[2020-02-25] MEDS: POTASSIUM EFFERVESENT TAB 25 MEQ PEG SCH ×2 (09:59→22:00)
[2020-02-25] MEDS ORDERED: POTASSIUM CHL 20 Meq TABLET PO SCH (10:00)
[2020-02-25] MEDS: PANTOPRAZOLE 40 MG/10 ML VIAL INJ IV SCH ×2 (10:10→22:00)
[2020-02-25] MEDS: FLORASTOR (S. BOULARDII) 250 MG CAP PO SCH ×2 (10:10→22:00)
[2020-02-25] MEDS: MEGESTROL ACET 400MG/10ML ORAL SUSP GT SCH ×2 (10:10→22:00)
[2020-02-25] MEDS: amLODIPine BESYLATE 5 MG TAB PO SCH (10:11)
[2020-02-25] MEDS: CHOLECALCIFEROL (VITD3) 1,000UNIT=25mCg TAB PO SCH (10:11)
[2020-02-25] MEDS: METOPROLOL TARTRATE 25 MG TAB PO SCH ×2 (10:11→22:00)
[2020-02-25] MEDS: cefTRIAXone 1GM/50ML D5W 50 ML IV SCH (10:13)
--- NOTE | 2020-02-25 11:03 | NUR ---
NARENDRA LAUNDRY OPERATOR WASH ROOM CALLED TO REPORT TRANSPORTATION PHOTOGRAPHER MODEL,CLARIFIED WITH NARENDRA THAT DISCHARGE ORDER IS FOR TOMORROW 02/26/20 NARENDRA VERBALIZED UNDERSTANDING PT IS DISCHARGING TOMORROW NOT TODAY
--- NOTE | 2020-02-25 11:16 | NUR ---
re-assessment I have notified Lisa at [facility] that patient will be transported back to [facility] tomorrow 02/26/2020. Lisa assigned room 24a and Dr De La Garza is the accepting MD. Call [phone] for report. Transportation will be set up on DC. Addendum: 02/25/20 at 1117 by Lissy SMALL Amended: Links added.
--- NOTE | 2020-02-25 11:30 | NUR ---
CALLED PHARMACY NEED LIQUID FORM OF IRON CANNOT BE CRUSHED FOR GT IN TABLET FORM
[2020-02-25] MEDS: FERROUS SULFATE 300 MG/5 ML ORAL LIQ GT SCH ×2 (12:19→22:00)
[2020-02-25 13:00] VITALS: BP 116/59
--- NOTE | 2020-02-25 14:24 | NUR ---
pt asleep in bed verbally arousable no respiratory distress noted
[2020-02-25 17:00] VITALS: BP 103/63
[2020-02-25] MEDS: RIVAROXABAN 15 MG TAB PO SCH (17:18)
--- NOTE | 2020-02-25 19:30 | NUR ---
Opening Shift Note Assumed care of patient, awake, AAOx1 to self. On 2L oxygen via nasal cannula. On bedrest in specialty bed. No S/S of distress/SOB or pain. Bed in lowest locked position, side rails up x2, call light within reach. Instructed on POC and to call for assist PRN, will continue to monitor for changes Q1hr and PRN.
[2020-02-25 20:00] VITALS: BP 122/67
[2020-02-25 22:00] VITALS: BP 122/67
[2020-02-25] MEDS: ATORVASTATIN 20 MG TAB PO SCH (22:00)
[2020-02-26 05:00] VITALS: BP 120/71
[2020-02-26] MEDS: FERROUS SULFATE 300 MG/5 ML ORAL LIQ GT SCH ×3 (06:06→21:49)
[2020-02-26] MEDS: ACCU-CHEK COMFORT CURVE STRIP VI SCH ×4 (06:06→21:52)
[2020-02-26] MEDS: hydrALAZINE HCL 25 MG TAB PO SCH ×3 (06:06→21:51)
[2020-02-26] MEDS: InsuLIN REG 1unit/0.01ml Soln (100units/ml) SC SCH ×4 (06:06→21:52)
--- NOTE | 2020-02-26 07:39 | NUR ---
OPENING SHIFT NOTE Assumed care of patient. Patient is responsive to name. No sob or distress noted. POC reviewed with pt. Bed locked in lowest position. Side rails up x2. Will continue to monitor.
[2020-02-26] MEDS: SODIUM CHLORIDE 0.9% 1,000 ML IV SCH ×3 (09:36→18:05)
[2020-02-26] MEDS: glyBURIDE 5 MG TAB PO SCH ×2 (09:38→18:06)
[2020-02-26] MEDS: MEGESTROL ACET 400MG/10ML ORAL SUSP GT SCH ×2 (09:39→21:49)
[2020-02-26] MEDS: POTASSIUM EFFERVESENT TAB 25 MEQ PEG SCH ×2 (09:41→21:50)
[2020-02-26] MEDS: FLORASTOR (S. BOULARDII) 250 MG CAP PO SCH ×2 (09:41→21:50)
[2020-02-26] MEDS: cefTRIAXone 1GM/50ML D5W 50 ML IV SCH (09:41)
[2020-02-26] MEDS: PANTOPRAZOLE 40 MG/10 ML VIAL INJ IV SCH ×2 (09:41→21:52)
[2020-02-26] MEDS: CHOLECALCIFEROL (VITD3) 1,000UNIT=25mCg TAB PO SCH (09:42)
[2020-02-26] MEDS: amLODIPine BESYLATE 5 MG TAB PO SCH (09:42)
[2020-02-26] MEDS: METOPROLOL TARTRATE 25 MG TAB PO SCH ×2 (09:44→21:51)
[2020-02-26 10:00] VITALS: BP 113/75
[2020-02-26 13:00] VITALS: BP 114/61
--- NOTE | 2020-02-26 13:35 | NUR ---
SPOKE WITH DR RUSS. STATED PT COULD BE DISCHARGED TO [facility] WITH GI CLEARANCE AND POTASSIUM LEVEL ABOVE 3.2. PAGED DR AGUIRRE. AWAITING LAB RESULTS
--- NOTE | 2020-02-26 13:37 | NUR ---
CLEARED BY DR AGUIRRE
[2020-02-26 13:40] LABS: BUN/Creatinine Ratio 8.9; Potassium 3.1 mmol/L (3.5-5.1)
--- NOTE | 2020-02-26 15:18 | NUR ---
potassium is 3.1 Dr russ notified. instructed to proceed with discharge. spoke with ss regarding transport. Addendum: 02/26/20 at 1641 by ARACELI DA SILVA RN DR RUSS PLACED ORDERS
--- NOTE | 2020-02-26 16:00 | NUR ---
NARENDRA FROM STATED DC WILL HAPPEN TOMORROW 02/26 DUE TO PT LOSING BED AT [facility].
--- NOTE | 2020-02-26 16:04 | NUR ---
re-assessment Patient is now discharged. Per Lisa at [facility] she had to give bed away and cannot take patient until the morning since patient has to be put in isolation for 14 days. RN notified. Addendum: 02/27/20 at 0906 by Lissy SMALL Amended: Links added.
[2020-02-26 17:00] VITALS: BP 117/71
[2020-02-26] MEDS: RIVAROXABAN 15 MG TAB PO SCH (18:06)
[2020-02-26 21:37] VITALS: BP 168/75
[2020-02-26] MEDS: ATORVASTATIN 20 MG TAB PO SCH (21:50)
[2020-02-27] MEDS: SODIUM CHLORIDE 0.9% 1,000 ML IV SCH ×3 (03:19→15:03)
--- NOTE | 2020-02-27 03:25 | NUR ---
ASSUMED CARE ASSUMED CARE OF PATIENT FROM WILL, RN. PATIENT ASLEEP, EVEN UNLABORED RESPIRATIONS. NO S/S OF DISTRESS, SOB OR PAIN NOTED. BED IN LOWEST/LOCKED POSITION, BED RAILS UP X2, CALL LIGHT WITHIN REACH. WILL CONTINUE TO MONITOR
[2020-02-27 05:28] VITALS: BP 132/84
[2020-02-27] MEDS: hydrALAZINE HCL 25 MG TAB PO SCH ×2 (06:00→14:29)
[2020-02-27] MEDS: FERROUS SULFATE 300 MG/5 ML ORAL LIQ GT SCH ×2 (06:08→14:28)
[2020-02-27 06:11] LABS: Calcium 8.1 mg/dL (8.5-10.1); Potassium 3.9 mmol/L (3.5-5.1)
[2020-02-27] MEDS: ACCU-CHEK COMFORT CURVE STRIP VI SCH ×3 (06:14→17:20)
[2020-02-27 06:15] LABS: BUN/Creatinine Ratio 8.9
[2020-02-27] MEDS: InsuLIN REG 1unit/0.01ml Soln (100units/ml) SC SCH ×3 (06:15→17:20)
[2020-02-27 08:00] VITALS: BP 148/72
[2020-02-27] MEDS: glyBURIDE 5 MG TAB PO SCH ×2 (08:00→17:20)
[2020-02-27] MEDS: cefTRIAXone 1GM/50ML D5W 50 ML IV SCH (08:34)
[2020-02-27 09:00] VITALS: BP 148/42
[2020-02-27] MEDS: MEGESTROL ACET 400MG/10ML ORAL SUSP GT SCH (10:16)
[2020-02-27] MEDS: PANTOPRAZOLE 40 MG/10 ML VIAL INJ IV SCH (10:17)
[2020-02-27] MEDS: POTASSIUM EFFERVESENT TAB 25 MEQ PEG SCH (10:17)
[2020-02-27] MEDS: FLORASTOR (S. BOULARDII) 250 MG CAP PO SCH (10:18)
[2020-02-27] MEDS: METOPROLOL TARTRATE 25 MG TAB PO SCH (10:19)
[2020-02-27] MEDS: CHOLECALCIFEROL (VITD3) 1,000UNIT=25mCg TAB PO SCH (10:20)
[2020-02-27] MEDS: amLODIPine BESYLATE 5 MG TAB PO SCH (10:20)
--- NOTE | 2020-02-27 12:26 | NUR ---
Nutrition Consult/ Followup Notes Wt: 61.8 kg Pt is s/p PEG tube placement. Pt with Jevity 1.2 at 30 ml/hr order per MD. Consider changing TF order to Glucerna 1.2 d/t to pt past medical hx of DM, if pt to stay on Jevity 1.2 per MD order change to Osmolite 1.2 d/t nationwide shortage of Jevity 1.2. Est energy needs 3232-7270 kcal (30-35 kcal/kg BW 51.6kg) Est protein needs 52-67g (1-1.3g/kg BW 51.6kg) Will reassess prn. LABS: BUN 5L, Ca 8.1L, Alb 1.9L, GLUC 195H GI: Pt had 2 BMs reported 02/23 per RN doc BS: 14 mod risk Refer to wound assessment report for full details. PES: Increased protein needs aeb increased protein needs for wound healing r/t BS 10, multiple pressure ulcers per tree care foreman note Comments 1) Consider Glucerna 1.2 @ 55 ml/hr and MVI + Vitamin C 500mg BID for wound healing Monitor labs, skin F/u high 2-3 days
[2020-02-27 13:00] VITALS: BP 132/78
--- NOTE | 2020-02-27 15:30 | NUR ---
RE-ASSESSMENT Patient will be admitted to room 25b and Dr Ochoa is the accepting MD. [facility] will transport between 6pm and 7pm post discharge. Angela who is covering for Yves PEOPLES has been notified. Addendum: 02/27/20 at 1539 by Lissy SMALL Amended: Links added.
--- NOTE | 2020-02-27 16:01 | NUR ---
RE-ASSESSMENT Per Lisa at [facility] call report to [phone]. Patient will be admitted to room 25b and Dr Ochoa is the accepting MD. [facility] [phone] will transport patient back to [facility] between 6pm and 7pm today post discharge. Yves PEOPLES has been notified. Addendum: 02/27/20 at 1602 by Lissy SMALL Amended: Links added.
--- NOTE | 2020-02-27 16:31 | NUR ---
TRANSFER REPORT CALLED INTO [facility] AND ACCEPTED BY SHELTON ABEL
[2020-02-27 16:52] VITALS: BP 131/54
[2020-02-27] MEDS: RIVAROXABAN 15 MG TAB PO SCH (18:04)
--- NOTE | 2020-02-27 19:30 | NUR ---
PATIENT DISCHARGED TO [facility] WITH TRANSPORT. ALL IV ACCESS DISCONTINUED. TELEMETRY BOX REMOVED AND RETURNED TO TELEMETRY DEPARTMENT. WOUND PHOTOS TAKEN. PATIENT DISCHARGE PAPERWORK GIVEN BUT PATIENT UNABLE TO UNDERSTAND. ALL DISCHARGE PAPERWORK SIGNED.
== END 2020-02-27 19:30 | DRG 391 ==
LOC: ER 17:53 → EDBD 17:53 → TELE 17:54 → TELE-WESTW 02-18 22:35
PROVIDERS: ADMIT Specialist; ATTEND Specialist
PROC: 0DH68UZ Insertion of Feeding Device into Stomach, Via Natural or Artificial Opening Endoscopic (ICD-10-PCS; principal; 2020-02-21 09:09)
DX: R13.10 Dysphagia, unspecified (principal); L89.153 Pressure ulcer of sacral region, stage 3; G93.41 Metabolic encephalopathy; E87.0 Hyperosmolality and hypernatremia; E44.0 Moderate protein-calorie malnutrition; Z68.1 Body mass index [BMI] 19.9 or less, adult; R65.10 Systemic inflammatory response syndrome (SIRS) of non-infectious origin without acute organ dysfunction; K26.9 Duodenal ulcer, unspecified as acute or chronic, without hemorrhage or perforation; R62.7 Adult failure to thrive; E11.40 Type 2 diabetes mellitus with diabetic neuropathy, unspecified; E11.22 Type 2 diabetes mellitus with diabetic chronic kidney disease; E78.5 Hyperlipidemia, unspecified; I13.10 Hypertensive heart and chronic kidney disease without heart failure, with stage 1 through stage 4 chronic kidney disease, or unspecified chronic kidney disease; N18.9 Chronic kidney disease, unspecified; L89.611 Pressure ulcer of right heel, stage 1; F02.80 Dementia in other diseases classified elsewhere, unspecified severity, without behavioral disturbance, psychotic disturbance, mood disturbance, and anxiety; I48.91 Unspecified atrial fibrillation; Z66 Do not resuscitate; K21.9 Gastro-esophageal reflux disease without esophagitis; Z86.73 Personal history of transient ischemic attack (TIA), and cerebral infarction without residual deficits; Z79.01 Long term (current) use of anticoagulants; Z95.1 Presence of aortocoronary bypass graft; Z03.818 Encounter for observation for suspected exposure to other biological agents ruled out
CPT/HCPCS: 36415; 43246; 70450; 71045; 80048; 80053; 81001; 82962; 85025; 85610; 85730; 86850; 86900; 86901; 87081; 93005; 93306; C9113; G0378; J0690; J0696; J1815; J2250; J3480

== ENCOUNTER 2021-07-20 05:23 | Inpatient (IN) | payer MEDICARE, MEDICAID ==
[~2021-07-20] VITALS: Ht 154.9 cm; Wt 63.5 kg
[~2021-07-20 05:23] MED LIST: ACET-1156 PO; ALPR1TAB2 PO; AML5T PO; BISA10SU5 RE; COEN1CAP8 PO; CRAN450T PO; DOCU-94 PO; FERR-20 PO; GLYB1.257 PO; HYDR-4296 PO; MEGE40TA4 PO; METO25TA5 PO
[2021-07-20 05:32] VITALS: BP 179/59
[2021-07-20] MEDS ORDERED: LABETALOL HCL 5 MG/ML 4ML SYRINGE IV ONE ×2 (05:48→05:50)
[2021-07-20 08:15] LABS: Basophils # (auto) 0.1 10 ^3/uL (0-0.2); Basophils % (auto) 0.2 % (0.0-2.0); Eosinophils # (auto) 0 10 ^3/uL (0-0.8); Hematocrit 42.7 % (36.0-46.0); Hemoglobin 13.4 g/dL (12.2-16.2); Lymphocytes % (auto) 4.1 % (10.0-50.0); Mean Corpuscular Hemoglobin 27.5 pg (28.0-32.0); Mean Corpuscular Hgb Conc. 31.3 g/dL (32.0-36.0); Mean Corpuscular Volume 87.7 fL (80.0-100.0); Monocytes # (auto) 1.2 10 ^3/uL (0-1.3); Monocytes % (auto) 5.1 % (0.0-12.0); Neutrophils # (auto) 21.6 10 ^3/uL (1.6-8.6); Neutrophils % (auto) 90.6 % (37.0-80.0); Red Blood Cells 4.86 10^6/uL (4.0-5.20); Red Cell Distribution Width 17.5 % (11.8-14.3); White Blood Cell 23.9 10^3/uL (4.4-10.8)
[2021-07-20 08:34] LABS: INR 1.06 (0.9-1.15)
[2021-07-20 09:00] VITALS: BP 136/51
[2021-07-20 09:04] LABS: BUN/Creatinine Ratio 40.2; Bilirubin, Total 0.8 mg/dL (0.2-1.0); Calcium 9.3 mg/dL (8.5-10.1); Total Protein 8.3 g/dL (6.4-8.2)
[2021-07-20 09:05] LABS: Albumin 2.5 g/dL (3.4-5.0); Magnesium 2.9 mg/dL (1.6-2.6)
[2021-07-20 09:09] LABS: Lactic Acid w/Reflex 3.6 mmol/L (0.4-2.0)
[2021-07-20 09:41] LABS: Urine Bacteria FEW /hpf (None Seen); Urine Blood 1+ /uL (Negative); Urine Hyaline Cast FEW /lpf (0 - 2); Urine Mucus FEW (None Seen); Urine Specific Gravity 1.024 (1.001-1.035); Urine WBC 171 /hpf (0 - 5); Urine WBC Clumps PRESENT /hpf (None Seen)
[2021-07-20] MEDS ORDERED: cefTRIAXone 1GM/50ML D5W 50 ML IV ONE (11:45)
[2021-07-20] MEDS ORDERED: SODIUM CHLORIDE 0.9% 1,000 ML IV ONE (11:45)
[2021-07-20] MEDS ORDERED: AZITHROMYCIN 500MG/ 250ML 250 ML IV ONE (11:45)
[2021-07-20] MEDS ORDERED: InsuLIN REG 1unit/0.01ml Soln (100units/ml) IV ONE (12:00)
[2021-07-20] MEDS ORDERED: NITROGLYCERIN 0.4 MG SL TAB SL PRN (12:15)
[2021-07-20] MEDS ORDERED: DEXTROSE (50%) 50ML SYRG IV PRN (12:15)
[2021-07-20] MEDS ORDERED: MORPHINE SULFATE INJECTION 2 MG/ML SYRG IV PRN (12:15)
[2021-07-20] MEDS ORDERED: ONDANSETRON HCL 4 MG/2 ML VIAL IV PRN (12:15)
[2021-07-20] MEDS ORDERED: DOCUSATE SOD 100 MG CAP PO PRN (12:15)
[2021-07-20] MEDS ORDERED: MORPHINE SULFATE 4 MG/ML SYR/VIAL IV PRN (12:15)
[2021-07-20] MEDS ORDERED: VANCOMYCIN PER PHARMACY 0 MG IV SCH (17:00)
[2021-07-20] MEDS ORDERED: VANCOMYCIN 1GM/250ML 250 ML IV ONE (17:15)
[2021-07-20] MEDS: ACCU-CHEK COMFORT CURVE STRIP VI SCH ×2 (17:43→20:30)
[2021-07-20] MEDS: InsuLIN REG 1unit/0.01ml Soln (100units/ml) SC SCH ×2 (17:43→21:28)
[2021-07-20] MEDS ORDERED: PIPERACILLIN-TAZOB 3.375GM 100 ML IV SCH (18:00)
[2021-07-20] MEDS ORDERED: MEROPENEM 1GM IVPB 100 ML IV SCH (18:15)
[2021-07-20] MEDS: MEROPENEM 1GM IVPB 100 ML IV SCH (21:46)
[2021-07-20] MEDS ORDERED: PANTOPRAZOLE 40 MG/10 ML VIAL INJ IV SCH (22:00)
[2021-07-20] MEDS: ASCORBIC ACID 500 MG TAB PO SCH (22:34)
[2021-07-20] MEDS: PANTOPRAZOLE 40 MG/10 ML VIAL INJ IV SCH (22:34)
[2021-07-21] MEDS: ACCU-CHEK COMFORT CURVE STRIP VI SCH ×6 (00:30→20:41)
[2021-07-21] MEDS: InsuLIN REG 1unit/0.01ml Soln (100units/ml) SC SCH ×6 (00:34→20:42)
[2021-07-21] MEDS: MEROPENEM 1GM IVPB 100 ML IV SCH ×2 (04:15→17:33)
[2021-07-21 08:25] LABS: Albumin 1.9 g/dL (3.4-5.0); Calcium 8.9 mg/dL (8.5-10.1); Potassium 4.4 mmol/L (3.5-5.1)
[2021-07-21 08:29] LABS: BUN/Creatinine Ratio 43.4; Bilirubin, Total 0.7 mg/dL (0.2-1.0); Total Protein 7.6 g/dL (6.4-8.2)
[2021-07-21 09:23] LABS: Basophils # (auto) 0 10 ^3/uL (0-0.2); Basophils % (auto) 0.1 % (0.0-2.0); Eosinophils # (auto) 0 10 ^3/uL (0-0.8); Hematocrit 36.8 % (36.0-46.0); Hemoglobin 11.9 g/dL (12.2-16.2); Lymphocytes # (auto) 1.4 10 ^3/uL (0.4-5.4); Lymphocytes % (auto) 7.7 % (10.0-50.0); Mean Corpuscular Hemoglobin 27.7 pg (28.0-32.0); Mean Corpuscular Hgb Conc. 32.3 g/dL (32.0-36.0); Mean Corpuscular Volume 85.6 fL (80.0-100.0); Monocytes # (auto) 1.4 10 ^3/uL (0-1.3); Monocytes % (auto) 7.6 % (0.0-12.0); Neutrophils # (auto) 15.7 10 ^3/uL (1.6-8.6); Neutrophils % (auto) 84.6 % (37.0-80.0); Nucleated Red Blood Cells % 0.1 %; Red Cell Distribution Width 17.6 % (11.8-14.3); White Blood Cell 18.5 10^3/uL (4.4-10.8)
[2021-07-21] MEDS: ZINC SULFATE 220mg CAP or TAB PO SCH (10:20)
[2021-07-21] MEDS: MULTIPLE VITAMIN TAB PO SCH (10:20)
[2021-07-21] MEDS: PANTOPRAZOLE 40 MG/10 ML VIAL INJ IV SCH ×2 (10:20→22:21)
[2021-07-21] MEDS: ASCORBIC ACID 500 MG TAB PO SCH ×2 (10:20→22:21)
[2021-07-21] MEDS ORDERED: FUROSEMIDE 40 MG/4 ML VIAL IV ONE (11:15)
[2021-07-21] MEDS ORDERED: ATOR20TA50 PO (13:46)
[2021-07-21] MEDS ORDERED: HYDR25TA87 PO (13:46)
[2021-07-21] MEDS ORDERED: GLIP5TAB12 PO (13:46)
[2021-07-21] MEDS ORDERED: INSREG3 (13:46)
[2021-07-21] MEDS ORDERED: HYDR-4902 PO (13:46)
[2021-07-21] MEDS ORDERED: RIV15T PO (13:46)
[2021-07-21] MEDS ORDERED: OMEP-194 PO (13:46)
[2021-07-21] MEDS ORDERED: AMLO-489 PO (13:46)
[2021-07-21] MEDS ORDERED: MET50T PO (13:46)
[2021-07-21] MEDS: ACETYLCYSTEINE 20%(200MG/ML) SOL 4ML NEB SCH ×2 (14:17→21:58)
[2021-07-21] MEDS: ALBUTEROL SULF 2.5 MG/0.5ML(0.5%) NEB SOLN NEB SCH ×3 (14:18→21:58)
[2021-07-21] MEDS ORDERED: VANCOMYCIN 1GM/250ML 250 ML IV SCH (18:00)
[2021-07-22] MEDS: ACCU-CHEK COMFORT CURVE STRIP VI SCH ×6 (00:12→20:41)
[2021-07-22] MEDS: InsuLIN REG 1unit/0.01ml Soln (100units/ml) SC SCH ×6 (00:16→20:42)
[2021-07-22] MEDS: ALBUTEROL SULF 2.5 MG/0.5ML(0.5%) NEB SOLN NEB SCH ×5 (02:20→21:58)
[2021-07-22] MEDS: MEROPENEM 1GM IVPB 100 ML IV SCH ×2 (04:06→16:30)
[2021-07-22] MEDS: ACETYLCYSTEINE 20%(200MG/ML) SOL 4ML NEB SCH ×3 (06:56→19:00)
[2021-07-22] MEDS: PANTOPRAZOLE 40 MG/10 ML VIAL INJ IV SCH ×2 (10:35→21:16)
[2021-07-22] MEDS: ZINC SULFATE 220mg CAP or TAB PO SCH (10:35)
[2021-07-22] MEDS: MULTIPLE VITAMIN TAB PO SCH (10:35)
[2021-07-22] MEDS: ASCORBIC ACID 500 MG TAB PO SCH ×2 (10:35→22:00)
[2021-07-22 11:14] LABS: Basophils # (auto) 0 10 ^3/uL (0-0.2); Basophils % (auto) 0.2 % (0.0-2.0); Eosinophils # (auto) 0 10 ^3/uL (0-0.8); Eosinophils % (auto) 0.2 % (0.0-7.0); Hematocrit 37.1 % (36.0-46.0); Hemoglobin 11.7 g/dL (12.2-16.2); Lymphocytes % (auto) 7.9 % (10.0-50.0); Mean Corpuscular Hemoglobin 27.1 pg (28.0-32.0); Mean Corpuscular Hgb Conc. 31.5 g/dL (32.0-36.0); Mean Corpuscular Volume 85.9 fL (80.0-100.0); Monocytes # (auto) 0.6 10 ^3/uL (0-1.3); Monocytes % (auto) 4.9 % (0.0-12.0); Neutrophils # (auto) 11.4 10 ^3/uL (1.6-8.6); Neutrophils % (auto) 86.8 % (37.0-80.0); Nucleated Red Blood Cells % 0.1 %; Red Blood Cells 4.31 10^6/uL (4.0-5.20); Red Cell Distribution Width 17.6 % (11.8-14.3); White Blood Cell 13.1 10^3/uL (4.4-10.8)
[2021-07-22 11:29] LABS: Calcium 9.1 mg/dL (8.5-10.1); Potassium 3.4 mmol/L (3.5-5.1)
[2021-07-22 11:32] LABS: BUN/Creatinine Ratio 46.2; Bilirubin, Total 0.8 mg/dL (0.2-1.0)
[2021-07-22 19:07] VITALS: BP 130/72
[2021-07-22] MEDS ORDERED: VANCOMYCIN 1GM/250ML 250 ML IV SCH (20:00)
[2021-07-22 22:15] VITALS: BP 153/65
[2021-07-23] VITALS (7 sets, daily range): BP systolic 93–184; BP diastolic 41–97
[2021-07-23] MEDS: ACCU-CHEK COMFORT CURVE STRIP VI SCH ×6 (01:12→20:29)
[2021-07-23] MEDS: InsuLIN REG 1unit/0.01ml Soln (100units/ml) SC SCH ×6 (01:13→20:34)
[2021-07-23] MEDS: ALBUTEROL SULF 2.5 MG/0.5ML(0.5%) NEB SOLN NEB SCH ×6 (02:00→22:23)
[2021-07-23] MEDS: hydrALAZINE HCL 20 MG/ML VL IV PRN ×2 (04:18→19:24)
[2021-07-23] MEDS: MEROPENEM 1GM IVPB 100 ML IV SCH ×2 (04:29→17:29)
[2021-07-23] MEDS: ACETYLCYSTEINE 20%(200MG/ML) SOL 4ML NEB SCH ×3 (06:00→22:23)
[2021-07-23] MEDS: ZINC SULFATE 220mg CAP or TAB PO SCH (10:08)
[2021-07-23] MEDS: ASCORBIC ACID 500 MG TAB PO SCH ×2 (10:08→21:47)
[2021-07-23] MEDS: PANTOPRAZOLE 40 MG/10 ML VIAL INJ IV SCH ×2 (10:08→21:46)
[2021-07-23] MEDS: MULTIPLE VITAMIN TAB PO SCH (10:08)
[2021-07-23 18:27] LABS: Calcium 8.9 mg/dL (8.5-10.1)
[2021-07-23 18:30] LABS: Bilirubin, Total 0.9 mg/dL (0.2-1.0); Total Protein 7.4 g/dL (6.4-8.2)
[2021-07-23] MEDS: ACETAMINOPHEN 325 MG TAB PO PRN (21:47)
[2021-07-24] MEDS: InsuLIN REG 1unit/0.01ml Soln (100units/ml) SC SCH ×6 (00:21→20:00)
[2021-07-24] MEDS: ACCU-CHEK COMFORT CURVE STRIP VI SCH ×6 (00:22→20:10)
[2021-07-24] MEDS: ALBUTEROL SULF 2.5 MG/0.5ML(0.5%) NEB SOLN NEB SCH ×6 (02:28→22:20)
[2021-07-24] MEDS: MEROPENEM 1GM IVPB 100 ML IV SCH ×2 (04:09→15:50)
[2021-07-24 05:00] VITALS: BP 148/63
[2021-07-24 06:50] LABS: Basophils # (auto) 0 10 ^3/uL (0-0.2); Basophils % (auto) 0.3 % (0.0-2.0); Eosinophils # (auto) 0 10 ^3/uL (0-0.8); Eosinophils % (auto) 0.1 % (0.0-7.0); Hematocrit 36.9 % (36.0-46.0); Hemoglobin 11.9 g/dL (12.2-16.2); Lymphocytes % (auto) 7.1 % (10.0-50.0); Mean Corpuscular Hemoglobin 27.3 pg (28.0-32.0); Mean Corpuscular Hgb Conc. 32.3 g/dL (32.0-36.0); Mean Corpuscular Volume 84.5 fL (80.0-100.0); Monocytes # (auto) 1.2 10 ^3/uL (0-1.3); Monocytes % (auto) 8.1 % (0.0-12.0); Neutrophils # (auto) 12.4 10 ^3/uL (1.6-8.6); Neutrophils % (auto) 84.4 % (37.0-80.0); Nucleated Red Blood Cells % 0.2 %; Red Blood Cells 4.36 10^6/uL (4.0-5.20); Red Cell Distribution Width 17.4 % (11.8-14.3); White Blood Cell 14.7 10^3/uL (4.4-10.8)
[2021-07-24] MEDS: ACETYLCYSTEINE 20%(200MG/ML) SOL 4ML NEB SCH (08:02)
[2021-07-24 09:00] VITALS: BP 139/71
[2021-07-24] MEDS: MULTIPLE VITAMIN TAB PO SCH (09:38)
[2021-07-24] MEDS: ZINC SULFATE 220mg CAP or TAB PO SCH (09:38)
[2021-07-24] MEDS: PANTOPRAZOLE 40 MG/10 ML VIAL INJ IV SCH ×2 (09:38→22:43)
[2021-07-24] MEDS: ASCORBIC ACID 500 MG TAB PO SCH ×2 (09:38→22:43)
[2021-07-24] MEDS: hydrALAZINE HCL 20 MG/ML VL IV PRN (12:30)
[2021-07-24] MEDS: ACETAMINOPHEN 325 MG TAB PO PRN (12:53)
[2021-07-24 13:00] VITALS: BP 175/82
[2021-07-24] MEDS: ACETAMINOPHEN 650 mg PER 20.3 mL UD GT PRN (14:49)
[2021-07-24 16:34] LABS: Albumin 1.8 g/dL (3.4-5.0); BUN/Creatinine Ratio 41.3; Calcium 8.8 mg/dL (8.5-10.1)
[2021-07-24 16:37] LABS: Bilirubin, Total 0.8 mg/dL (0.2-1.0); Total Protein 6.8 g/dL (6.4-8.2)
[2021-07-24 17:00] VITALS: BP 153/61
[2021-07-24 18:07] LABS: Potassium 2.9 mmol/L (3.5-5.1)
[2021-07-24] MEDS ORDERED: POTASSIUM CHL 20 Meq TABLET PO ONE (18:15)
[2021-07-24] MEDS ORDERED: SOD CHL 0.45% WITH 20MEQ KCL 1,000 ML IV SCH (18:15)
[2021-07-24] MEDS ORDERED: POTASSIUM CHL 20MEQ/100ML 100 ML IV ONE (18:45)
[2021-07-24 22:00] VITALS: BP 159/76
[2021-07-24 23:22] VITALS: BP 144/71
[2021-07-25] MEDS: ACETAMINOPHEN 650 mg PER 20.3 mL UD GT PRN (00:10)
[2021-07-25] MEDS: ACCU-CHEK COMFORT CURVE STRIP VI SCH ×6 (00:11→20:24)
[2021-07-25] MEDS: InsuLIN REG 1unit/0.01ml Soln (100units/ml) SC SCH ×6 (00:14→20:25)
[2021-07-25] MEDS: ALBUTEROL SULF 2.5 MG/0.5ML(0.5%) NEB SOLN NEB SCH ×6 (02:02→23:01)
[2021-07-25] MEDS: MEROPENEM 1GM IVPB 100 ML IV SCH ×2 (04:17→16:00)
[2021-07-25 05:00] VITALS: BP 172/77
[2021-07-25 06:16] LABS: Albumin 1.7 g/dL (3.4-5.0); Potassium 3.6 mmol/L (3.5-5.1)
[2021-07-25 06:20] LABS: BUN/Creatinine Ratio 31.4; Bilirubin, Total 0.6 mg/dL (0.2-1.0); Total Protein 7.8 g/dL (6.4-8.2)
[2021-07-25 06:21] VITALS: BP 147/84
[2021-07-25 07:00] LABS: Basophils # (auto) 0.1 10 ^3/uL (0-0.2); Basophils % (auto) 0.3 % (0.0-2.0); Eosinophils # (auto) 0 10 ^3/uL (0-0.8); Hematocrit 37.3 % (36.0-46.0); Hemoglobin 12.2 g/dL (12.2-16.2); Lymphocytes # (auto) 1.7 10 ^3/uL (0.4-5.4); Lymphocytes % (auto) 8.5 % (10.0-50.0); Mean Corpuscular Hemoglobin 27.9 pg (28.0-32.0); Mean Corpuscular Hgb Conc. 32.7 g/dL (32.0-36.0); Mean Corpuscular Volume 85.5 fL (80.0-100.0); Monocytes # (auto) 0.9 10 ^3/uL (0-1.3); Monocytes % (auto) 4.5 % (0.0-12.0); Neutrophils # (auto) 17.4 10 ^3/uL (1.6-8.6); Neutrophils % (auto) 86.7 % (37.0-80.0); Nucleated Red Blood Cells % 0.1 %; Red Blood Cells 4.36 10^6/uL (4.0-5.20); Red Cell Distribution Width 17.8 % (11.8-14.3); White Blood Cell 20.1 10^3/uL (4.4-10.8)
[2021-07-25 09:11] VITALS: BP 144/64
[2021-07-25] MEDS: MULTIPLE VITAMIN TAB PO SCH (09:48)
[2021-07-25] MEDS: PANTOPRAZOLE 40 MG/10 ML VIAL INJ IV SCH ×2 (09:48→22:51)
[2021-07-25] MEDS: ASCORBIC ACID 500 MG TAB PO SCH ×2 (09:48→22:51)
[2021-07-25] MEDS: ZINC SULFATE 220mg CAP or TAB PO SCH (09:48)
[2021-07-25 12:49] VITALS: BP 159/80
[2021-07-25 17:39] VITALS: BP 146/90
[2021-07-25 22:00] VITALS: BP 157/87
[2021-07-25] MEDS: LINEZOLID 600MG/300ML 300 ML IV SCH (22:51)
[2021-07-26] MEDS: ACCU-CHEK COMFORT CURVE STRIP VI SCH ×7 (00:11→23:14)
[2021-07-26] MEDS: InsuLIN REG 1unit/0.01ml Soln (100units/ml) SC SCH ×7 (00:16→23:52)
[2021-07-26] MEDS: ALBUTEROL SULF 2.5 MG/0.5ML(0.5%) NEB SOLN NEB SCH ×6 (02:42→22:37)
[2021-07-26] MEDS: MEROPENEM 1GM IVPB 100 ML IV SCH ×2 (04:15→15:25)
[2021-07-26 05:00] VITALS: BP 157/68
[2021-07-26 07:53] LABS: Basophils # (auto) 0 10 ^3/uL (0-0.2); Basophils % (auto) 0.4 % (0.0-2.0); Eosinophils # (auto) 0.1 10 ^3/uL (0-0.8); Eosinophils % (auto) 1.1 % (0.0-7.0); Hematocrit 35.3 % (36.0-46.0); Hemoglobin 11.5 g/dL (12.2-16.2); Lymphocytes # (auto) 1.8 10 ^3/uL (0.4-5.4); Lymphocytes % (auto) 14.2 % (10.0-50.0); Mean Corpuscular Hemoglobin 27.8 pg (28.0-32.0); Mean Corpuscular Hgb Conc. 32.5 g/dL (32.0-36.0); Mean Corpuscular Volume 85.7 fL (80.0-100.0); Monocytes # (auto) 0.9 10 ^3/uL (0-1.3); Monocytes % (auto) 6.9 % (0.0-12.0); Neutrophils # (auto) 9.9 10 ^3/uL (1.6-8.6); Neutrophils % (auto) 77.4 % (37.0-80.0); Nucleated Red Blood Cells % 0.2 %; Red Blood Cells 4.12 10^6/uL (4.0-5.20); Red Cell Distribution Width 17.7 % (11.8-14.3); White Blood Cell 12.7 10^3/uL (4.4-10.8)
[2021-07-26 08:05] LABS: Potassium 3.1 mmol/L (3.5-5.1)
[2021-07-26 08:12] LABS: Albumin 1.7 g/dL (3.4-5.0); BUN/Creatinine Ratio 47.7; Bilirubin, Total 0.5 mg/dL (0.2-1.0); Calcium 8.7 mg/dL (8.5-10.1); Total Protein 6.4 g/dL (6.4-8.2)
[2021-07-26 09:00] VITALS: BP 155/72
[2021-07-26] MEDS: LINEZOLID 600MG/300ML 300 ML IV SCH ×2 (09:22→21:44)
[2021-07-26] MEDS: PANTOPRAZOLE 40 MG/10 ML VIAL INJ IV SCH ×2 (09:22→21:44)
[2021-07-26] MEDS: ASCORBIC ACID 500 MG TAB PO SCH ×2 (09:23→21:44)
[2021-07-26] MEDS: ZINC SULFATE 220mg CAP or TAB PO SCH (09:23)
[2021-07-26] MEDS: MULTIPLE VITAMIN TAB PO SCH (09:23)
[2021-07-26] MEDS: hydrALAZINE HCL 20 MG/ML VL IV PRN (10:29)
[2021-07-26 13:26] VITALS: BP 146/59
[2021-07-26 16:26] VITALS: BP 144/63
[2021-07-26 22:00] VITALS: BP 154/68
[2021-07-27] MEDS: ALBUTEROL SULF 2.5 MG/0.5ML(0.5%) NEB SOLN NEB SCH ×7 (02:46→22:38)
[2021-07-27] MEDS: MEROPENEM 1GM IVPB 100 ML IV SCH ×2 (03:29→15:41)
[2021-07-27] MEDS: ACCU-CHEK COMFORT CURVE STRIP VI SCH ×5 (03:29→20:13)
[2021-07-27] MEDS: InsuLIN REG 1unit/0.01ml Soln (100units/ml) SC SCH ×6 (03:45→23:58)
[2021-07-27 05:00] VITALS: BP 143/88
[2021-07-27 06:37] LABS: Basophils # (auto) 0 10 ^3/uL (0-0.2); Basophils % (auto) 0.4 % (0.0-2.0); Eosinophils # (auto) 0.2 10 ^3/uL (0-0.8); Eosinophils % (auto) 1.8 % (0.0-7.0); Hematocrit 35.5 % (36.0-46.0); Hemoglobin 11.6 g/dL (12.2-16.2); Lymphocytes # (auto) 2.4 10 ^3/uL (0.4-5.4); Lymphocytes % (auto) 24.3 % (10.0-50.0); Mean Corpuscular Hemoglobin 27.6 pg (28.0-32.0); Mean Corpuscular Hgb Conc. 32.6 g/dL (32.0-36.0); Mean Corpuscular Volume 84.7 fL (80.0-100.0); Monocytes % (auto) 9.7 % (0.0-12.0); Neutrophils # (auto) 6.4 10 ^3/uL (1.6-8.6); Neutrophils % (auto) 63.8 % (37.0-80.0); Nucleated Red Blood Cells % 0.1 %; Red Cell Distribution Width 17.4 % (11.8-14.3); White Blood Cell 10.1 10^3/uL (4.4-10.8)
[2021-07-27 06:50] LABS: Alanine Aminotransferase 16 U/L (13-56); Albumin 1.5 g/dL (3.4-5.0); Anion Gap 4 (5-15); Aspartate Aminotransferase 26 U/L (15-37); BUN/Creatinine Ratio 40.3; Blood Urea Nitrogen 29 mg/dL (7-18); Calcium 8.2 mg/dL (8.5-10.1); Carbon Dioxide 33 mmol/L (21-32); Chloride 113 mmol/L (98-107); GFR African American 99 mL/min; GFR Non-African American 82 mL/min; Glucose 81 mg/dL (74-106); Potassium 3.2 mmol/L (3.5-5.1); Sodium 150 mmol/L (136-145)
[2021-07-27 06:52] LABS: Alkaline Phosphatase 74 U/L (45-117); Bilirubin, Total 0.4 mg/dL (0.2-1.0); Total Protein 6.8 g/dL (6.4-8.2)
[2021-07-27 07:51] VITALS: BP 138/77
[2021-07-27] MEDS: ZINC SULFATE 220mg CAP or TAB PO SCH (08:45)
[2021-07-27] MEDS: ASCORBIC ACID 500 MG TAB PO SCH ×2 (08:45→22:15)
[2021-07-27] MEDS: PANTOPRAZOLE 40 MG/10 ML VIAL INJ IV SCH ×2 (08:45→22:15)
[2021-07-27] MEDS: LINEZOLID 600MG/300ML 300 ML IV SCH ×2 (08:45→22:15)
[2021-07-27] MEDS: MULTIPLE VITAMIN TAB PO SCH (08:45)
[2021-07-27 12:21] VITALS: BP 144/64
[2021-07-27] MEDS: hydrALAZINE HCL 20 MG/ML VL IV PRN (15:51)
[2021-07-27 17:06] VITALS: BP 113/73
[2021-07-27 22:00] VITALS: BP 117/60
[2021-07-28] MEDS: ACCU-CHEK COMFORT CURVE STRIP VI SCH ×6 (00:03→20:17)
[2021-07-28] MEDS: ALBUTEROL SULF 2.5 MG/0.5ML(0.5%) NEB SOLN NEB SCH ×5 (02:11→18:38)
[2021-07-28] MEDS: MEROPENEM 1GM IVPB 100 ML IV SCH (03:44)
[2021-07-28] MEDS: ACETAMINOPHEN 650 mg PER 20.3 mL UD GT PRN (03:44)
[2021-07-28] MEDS: InsuLIN REG 1unit/0.01ml Soln (100units/ml) SC SCH ×5 (04:00→20:00)
[2021-07-28 05:00] VITALS: BP 129/69
[2021-07-28 08:00] VITALS: BP 162/75
[2021-07-28] MEDS: MULTIPLE VITAMIN TAB PO SCH (09:23)
[2021-07-28] MEDS: PANTOPRAZOLE 40 MG/10 ML VIAL INJ IV SCH (09:23)
[2021-07-28] MEDS: LINEZOLID 600MG/300ML 300 ML IV SCH (09:23)
[2021-07-28] MEDS: ASCORBIC ACID 500 MG TAB PO SCH (09:23)
[2021-07-28] MEDS: ZINC SULFATE 220mg CAP or TAB PO SCH (09:23)
[2021-07-28] MEDS: hydrALAZINE HCL 20 MG/ML VL IV PRN (09:24)
[2021-07-28 13:00] VITALS: BP 144/7
[2021-07-28 13:35] LABS: Hematocrit 36.7 % (36.0-46.0); Hemoglobin 11.9 g/dL (12.2-16.2); Mean Corpuscular Hemoglobin 27.5 pg (28.0-32.0); Mean Corpuscular Hgb Conc. 32.5 g/dL (32.0-36.0); Mean Corpuscular Volume 84.7 fL (80.0-100.0); Red Blood Cells 4.33 10^6/uL (4.0-5.20); Red Cell Distribution Width 17.4 % (11.8-14.3); White Blood Cell 10.5 10^3/uL (4.4-10.8)
[2021-07-28 13:44] LABS: Basophils % (manual) 0 (0.0-2.0); Blast Cells 0; Eosinophils % (manual) 0 (0-7); Metamyelocytes % 0; Myelocytes % 0; Promyelocytes % 0; Reactive Lymphocytes 0
[2021-07-28 13:54] LABS: Albumin 1.8 g/dL (3.4-5.0); Calcium 8.5 mg/dL (8.5-10.1)
[2021-07-28 13:58] LABS: BUN/Creatinine Ratio 37.5; Bilirubin, Total 0.6 mg/dL (0.2-1.0); Total Protein 6.6 g/dL (6.4-8.2)
[2021-07-28 14:17] LABS: Band Neutrophils % (manual) 11; Lymphocytes % (manual) 22 (10.0-50.0); Monocytes % (manual) 2 (0-12)
[2021-07-28 14:28] LABS: Potassium 2.9 mmol/L (3.5-5.1)
[2021-07-28] MEDS ORDERED: POTASSIUM CHL 20MEQ/100ML 100 ML IV ONE (15:15)
[2021-07-28] MEDS ORDERED: POTASSIUM EFFERVESENT TAB 25 MEQ GT ONE ×2 (16:30)
[2021-07-28 17:44] VITALS: BP 148/73
== END 2021-07-28 20:32 | DRG 871 ==
LOC: ER 05:23 → SUR 12:12 → TELE 12:13 → TELE-WESTW 07-22 18:00
PROVIDERS: ADMIT Internal Medicine; ATTEND Internal Medicine
PROC: 5A09357 Assistance with Respiratory Ventilation, Less than 24 Consecutive Hours, Continuous Positive Airway Pressure (ICD-10-PCS; principal; 2021-07-20)
DX: A41.9 Sepsis, unspecified organism (principal); J69.0 Pneumonitis due to inhalation of food and vomit; J96.01 Acute respiratory failure with hypoxia; K92.0 Hematemesis; E66.9 Obesity, unspecified; E78.5 Hyperlipidemia, unspecified; E11.22 Type 2 diabetes mellitus with diabetic chronic kidney disease; F03.90 Unspecified dementia, unspecified severity, without behavioral disturbance, psychotic disturbance, mood disturbance, and anxiety; Z66 Do not resuscitate; I12.9 Hypertensive chronic kidney disease with stage 1 through stage 4 chronic kidney disease, or unspecified chronic kidney disease; I25.10 Atherosclerotic heart disease of native coronary artery without angina pectoris; L89.159 Pressure ulcer of sacral region, unspecified stage; N18.9 Chronic kidney disease, unspecified; K21.9 Gastro-esophageal reflux disease without esophagitis; N20.0 Calculus of kidney; K62.89 Other specified diseases of anus and rectum; I27.20 Pulmonary hypertension, unspecified; Z20.822 Contact with and (suspected) exposure to COVID-19; Z68.30 Body mass index [BMI] 30.0-30.9, adult; Z74.01 Bed confinement status; Z79.01 Long term (current) use of anticoagulants; Z79.899 Other long term (current) drug therapy; Z86.73 Personal history of transient ischemic attack (TIA), and cerebral infarction without residual deficits; Z93.1 Gastrostomy status; Z95.1 Presence of aortocoronary bypass graft
CPT/HCPCS: 36415; 36600; 70450; 71045; 71250; 74176; 80053; 81001; 82805; 82962; 83605; 83735; 83880; 84484; 85007; 85025; 85027; 85610; 85730; 87040; 87070; 87077; 87081; 87205; 87426; 93005; 93306; 94640; 94660; 94667; 94668; 96374; 96375; C9113; G0378; J1815; J2185; J3480; J3490

== ENCOUNTER 2021-07-29 08:53 | Emergency (ER) | payer MEDICARE, MEDICAID ==
[~2021-07-29] VITALS: Ht 162.6 cm; Wt 54.4 kg
[~2021-07-29 08:53] MED LIST changes: +AMLO-489 PO; +ATOR20TA50 PO; +GLIP5TAB12 PO; +HYDR-4902 PO; +HYDR25TA87 PO; +INSREG3; +MET50T PO; +OMEP-194 PO; +RIV15T PO
[2021-07-29 12:00] VITALS: BP 141/70
== END 2021-07-29 12:40 | disposition home or self-care (01) ==
LOC: ER 08:53 → EDBD 08:53 → ER 12:40
DX: N39.0 Urinary tract infection, site not specified (principal); E11.22 Type 2 diabetes mellitus with diabetic chronic kidney disease; I12.9 Hypertensive chronic kidney disease with stage 1 through stage 4 chronic kidney disease, or unspecified chronic kidney disease; N18.9 Chronic kidney disease, unspecified; Z45.2 Encounter for adjustment and management of vascular access device